=== PATIENT | female | born 1960 | race Caucasian/White ===

== ENCOUNTER → 2020-04-16 | Outpatient (CLI) | payer OTHER ==
[~2020-04-16] MED LIST: CRESTOR5 MG; GLUCOSA-CHOND-1 EACH; MULTIVITAMINS; TOPROL XL100 MG
== END ==
LOC: CAT 09:17
PROVIDERS: ATTEND Family Medicine
DX: N85.2 Hypertrophy of uterus (principal); K57.30 Diverticulosis of large intestine without perforation or abscess without bleeding; Z90.49 Acquired absence of other specified parts of digestive tract

== ENCOUNTER → 2020-04-17 | Outpatient (CLI) | payer OTHER | LOC: ULTRA 10:18 | PROVIDERS: ATTEND Family Medicine | DX: K76.0 Fatty (change of) liver, not elsewhere classified (principal); R19.09 Other intra-abdominal and pelvic swelling, mass and lump; Z90.49 Acquired absence of other specified parts of digestive tract ==

== ENCOUNTER → 2021-07-08 | Outpatient (CLI) | payer OTHER | LOC: ULTRA 08:48 | PROVIDERS: ATTEND Nurse Practitioner | DX: D28.1 Benign neoplasm of vagina (principal) ==